=== PATIENT | male | born 1985 | race Two or more races ===

== ENCOUNTER 2019-11-14 19:32 | Emergency (ER) | payer OTHER ==
[~2019-11-14] VITALS: Ht 172.7 cm; Wt 81.6 kg
--- NOTE | 2019-11-14 19:35 | NUR ---
Dr. Brito at bedside for MSE.
[2019-11-14] MEDS ORDERED: HYDROMORPHONE 1 MG/1 ML DISP.SYRIN IV ONE (19:45)
[2019-11-14] MEDS ORDERED: ONDANSETRON 4 MG/2 ML VIAL IV ONE (19:45)
[2019-11-14] MEDS ORDERED: ONDANSETRON 4 MG/2 ML VIAL ONE (19:49)
[2019-11-14] MEDS ORDERED: HYDROMORPHONE 1 MG/1 ML DISP.SYRIN ONE (19:49)
--- NOTE | 2019-11-14 21:32 | NUR ---
Patient discharged to home in stable condition. Written and verbal after care instructions given. Patient verbalizes understanding of instructions. Stressed follow up or return to ER for worsening s/s. aa/ox4. able to speak in complete sentences no s/s of distress respirations even and unlabored ambulatory with steady gait instructed pt not to drive pt's girlfriend will drive pt home all belongings with pt
[2019-11-14 22:18] VITALS: BP 126/74
== END 2019-11-14 21:32 | disposition home or self-care (01) ==
LOC: ER 19:35
DX: S42.022A Displaced fracture of shaft of left clavicle, initial encounter for closed fracture (principal); V29.88XA Motorcycle rider (driver) (passenger) injured in other specified transport accidents, initial encounter; Y92.488 Other paved roadways as the place of occurrence of the external cause; S80.211A Abrasion, right knee, initial encounter; S60.811A Abrasion of right wrist, initial encounter
CPT/HCPCS: 73000; 73130; 96374; 96375; 99284; J1170; J2405; A4663